=== PATIENT | female | born 1960 | race Caucasian/White ===

== ENCOUNTER 2018-02-13 03:09 | Inpatient (IN) ==
[2018-02-13] MEDS ORDERED: Sod Chloride 0.9% Inj 1,000 ML IV.SIG ONE (03:21)
[2018-02-13] MEDS ORDERED: Famotidine PF Inj 20 MG/2 ML Vial IV.PUSH ONE (03:21)
[2018-02-13] MEDS ORDERED: Ketorolac Inj 30 MG/ML (IVP) Vial IV.PUSH ONE ×2 (03:22→10:00)
--- NOTE | 2018-02-13 03:26 | ED ---
HPI General Chief Complaint: Abdominal Pain Stated Complaint: N/V,rt side abd pain x 12 hrs Time Seen by Provider: 02/13/18 03:20 History of Present Illness HPI narrative: Patient is 58 years old female with history of lymphoma not on chemotherapy since 2013, hysterectomy, partial small bowel obstruction few episodes since [id number], presented for epigastric and lower abdominal pain for 12 hours. Patients feel nauseous, vomited, had small bowel movement. She feels bloated, denies fever denies chest pain and shortness of breath. Related Data Home Medications Medication Instructions Recorded Confirmed No Known Home Medications 02/13/18 02/13/18 Allergies Allergy/AdvReac Type Severity Reaction Status Date / Time Sulfa (Sulfonamide Allergy Severe RASH Verified 02/13/18 03:40 Antibiotics) Review of Systems ROS: all other systems reviewed are negative Gastrointestinal Reports abdominal pain, Reports dyspepsia, Reports nausea and Reports vomiting PMFSH Medical History Medical History History of lymphoma (Acute) Hx of hysterectomy (Acute) Hx of small bowel obstruction (Acute) Social History Social History Substance History: No History of Abuse Second Hand Smoke Exposure: No Smoking Status: Former smoker How Often Do You Have a Drink Containing Alcohol: Monthly or less Recent Travel in [facility] within the Last 8 Weeks: No Recent Out of Country Travel within the Last 8 Weeks: No Exam Narrative Exam Narrative: GENERAL: 58 years old female in mild pain distress SKIN: Focused skin assessment warm/dry. HEAD: Atraumatic. Normocephalic. EYES: Pupils equal and round. No scleral icterus. No injection or drainage. ENT: No nasal bleeding or discharge. Mucous membranes pink and moist. NECK: Trachea midline. No JVD. CARDIOVASCULAR: Regular rate and rhythm. No murmur appreciated. RESPIRATORY: No accessory muscle use. Clear to auscultation. Breath sounds equal bilaterally. GASTROINTESTINAL: Abdomen soft, tender in the epigastric and lower abdominal area, nondistended. Hepatic and splenic margins not palpable. McBurney and Lyn signs are negative. MUSCULOSKELETAL: No obvious deformities. No clubbing. No cyanosis. No edema. NEUROLOGICAL: Awake and alert. No obvious cranial nerve deficits. Motor grossly within normal limits. Normal speech. PSYCHIATRIC: Appropriate mood and affect; insight and judgment normal. Course Initial Documented Vital Signs Temperature 97.6 F 02/13/18 03:14 Pulse Rate 71 02/13/18 03:14 Respiratory Rate 18 02/13/18 03:14 Blood Pressure 134/77 02/13/18 03:14 Pulse Oximetry 99 02/13/18 03:14 Last Documented Vital Signs Temperature 97.6 F 02/13/18 03:14 Pulse Rate 78 02/13/18 05:00 Respiratory Rate 16 02/13/18 05:00 Blood Pressure 138/72 02/13/18 05:00 Pulse Oximetry 99 02/13/18 05:00 Critical Care Time Critical Care Time: Yes Total Critical Care Time: 30 Attestation: Patient was treated for nausea and dehydration. Was diagnosed with small bowel obstruction, is discussed with surgeon and hospitalist. Medical Decision Making MDM Narrative Medical decision making narrative: Patient has abdominal pain, blood work and urine analysis ordered, IV fluids Zofran and Toradol for pain given. CAT scan is pending. 0420: Blood work and urine analysis noticed within normal limits, CAT scan shows small bowel obstruction. Case discussed with Dr. Hua, was asked to admit patient under hospitalist. Dr. Thomas accepted patient for admission. IV fluids continued, NG tube placed. Medical Screen Exam Complete: Yes Emergency Medical Condition: Yes Differential Diagnosis Differential Diagnosis: Small bowel obstruction versus gastroenteritis versus colitis versus diverticulitis. Lab Data Result diagrams: 02/13/18 03:30 02/13/18 03:30 Lab Results 02/13/18 02/13/18 02/13/18 Range/Units 03:30 03:30 03:30 CBC w Diff Auto diff final WBC 7.2 (4.0-11.0) th/mm3 RBC 4.72 (4.00-5.30) mil/mm3 Hgb 13.8 (11.6-15.3) gm/dL Hct 40.4 (35.0-46.0) % MCV 85.6 (80.0-100.0) fL MCH 29.2 (27.0-34.0) pg MCHC 34.0 (32.0-36.0) % RDW 13.3 (11.6-17.2) % Plt Count 179 (150-450) th/mm3 MPV 8.4 (7.0-11.0) fL Neut % (Auto) 84.3 H (16.0-70.0) % Lymph % (Auto) 12.3 (9.0-44.0) % [place] % (Auto) 2.9 (0.0-8.0) % Eos % (Auto) 0.4 (0.0-4.0) % Baso % (Auto) 0.1 (0.0-2.0) % Neut # (Auto) 6.1 (1.8-7.7) th/mm3 Lymph # (Auto) 0.9 L (1.0-4.8) th/mm3 [place] # (Auto) 0.2 (0.0-0.9) th/mm3 Eos # (Auto) 0.0 (0.0-0.4) th/mm3 Baso # (Auto) 0.0 (0.0-0.2) th/mm3 WBC Differential . Differential Comment . Sodium 139 (136-145) meq/L Potassium 3.5 (3.5-5.1) meq/L Chloride 103 (98-107) meq/L Carbon Dioxide 28.8 (21.0-32.0) meq/L Anion Gap 7 (5-15) meq/L BUN 18 (7-18) mg/dL Creatinine 0.85 (0.50-1.00) mg/dL Estimated GFR 68 L (>89) mL/min Random Glucose 167 H (74-106) mg/dL Lactic Acid 1.6 (0.4-2.0) mmol/L Calcium 9.1 (8.5-10.1) mg/dL Total Bilirubin 0.6 (0.2-1.0) mg/dL AST 22 (15-37) U/L ALT 46 (10-53) U/L Alkaline Phosphatase 56 (45-117) U/L Total Protein 8.5 H (6.4-8.2) g/dL Albumin 4.2 (3.4-5.0) g/dL Lipase 109 (73-393) U/L Urine Color (Yellw/Straw) Urine Clarity (Clear) Urine pH (5.0-8.5) Ur Specific [place] (1.002-1.035) Urine Protein (Neg-Trace) mg/dL Urine Glucose (UA) (Negative) mg/dL Urine Ketones (Negative) mg/dL Urine Occult Blood (Negative) Urine Nitrate (Negative) Urine Bilirubin (Negative) Urine Urobilinogen (Less than 2) mg/dL Ur Leukocyte Esterase (Negative) Ur Squamous Epith Cells (0-5) /hpf Amorphous Sediment (None) /hpf Micro UA Comment Ur Microscopic Review Urine Culture Comments 02/13/18 Range/Units 03:30 CBC w Diff WBC (4.0-11.0) th/mm3 RBC (4.00-5.30) mil/mm3 Hgb (11.6-15.3) gm/dL Hct (35.0-46.0) % MCV (80.0-100.0) fL MCH (27.0-34.0) pg MCHC (32.0-36.0) % RDW (11.6-17.2) % Plt Count (150-450) th/mm3 MPV (7.0-11.0) fL Neut % (Auto) (16.0-70.0) % Lymph % (Auto) (9.0-44.0) % [place] % (Auto) (0.0-8.0) % Eos % (Auto) (0.0-4.0) % Baso % (Auto) (0.0-2.0) % Neut # (Auto) (1.8-7.7) th/mm3 Lymph # (Auto) (1.0-4.8) th/mm3 [place] # (Auto) (0.0-0.9) th/mm3 Eos # (Auto) (0.0-0.4) th/mm3 Baso # (Auto) (0.0-0.2) th/mm3 WBC Differential Differential Comment Sodium (136-145) meq/L Potassium (3.5-5.1) meq/L Chloride (98-107) meq/L Carbon Dioxide (21.0-32.0) meq/L Anion Gap (5-15) meq/L BUN (7-18) mg/dL Creatinine (0.50-1.00) mg/dL Estimated GFR (>89) mL/min Random Glucose (74-106) mg/dL Lactic Acid (0.4-2.0) mmol/L Calcium (8.5-10.1) mg/dL Total Bilirubin (0.2-1.0) mg/dL AST (15-37) U/L ALT (10-53) U/L Alkaline Phosphatase (45-117) U/L Total Protein (6.4-8.2) g/dL Albumin (3.4-5.0) g/dL Lipase (73-393) U/L Urine Color Yellow (Yellw/Straw) Urine Clarity Clear (Clear) Urine pH 8.5 (5.0-8.5) Ur Specific [place] 1.010 (1.002-1.035) Urine Protein Trace (Neg-Trace) mg/dL Urine Glucose (UA) Negative (Negative) mg/dL Urine Ketones Negative (Negative) mg/dL Urine Occult Blood Negative (Negative) Urine Nitrate Negative (Negative) Urine Bilirubin Negative (Negative) Urine Urobilinogen 1.0 (Less than 2) mg/dL Ur Leukocyte Esterase Negative (Negative) Ur Squamous Epith Cells 0-5 (0-5) /hpf Amorphous Sediment Many H (None) /hpf Micro UA Comment Culture not ind Ur Microscopic Review Microscopic reviewed Urine Culture Comments Culture not ind Imaging Data Radiologist's impression: Abdomen/Pelvis CT 02/13/18 03:21 CONCLUSION: 1. Dilated proximal small bowel with fecalized loop in the pelvis and decompression of distal small bowel characteristic of a small bowel obstruction. 2. Small hiatal hernia. Small amount of free fluid. No free air. Discharge Plan Discharge Disposition Patient Disposition: 30 Still Patient Discharge Condition Condition: Serious Discharge Details Discharge Comment: Patient has small bowel obstruction, admitted for further evaluation and treatment under hospitalist service. Diagnosis: Small bowel obstruction Physicians Team ED Provider: Monico Haque Primary Care Provider: Bryanna Infante Attending Provider: Valentina Thomas Other Providers: Simon Hua Status ED Status: Admitted Patient
[2018-02-13 03:38] LABS: Bilirubin,Urine Negative (Negative); Clarity,Urine Clear (Clear); Color,Urine Yellow (Yellw/Straw); Glucose,Urine (UA) Negative (Negative); Leukocyte Esterase,Urine Negative (Negative); Nitrite,Urine Negative (Negative); PH,Urine 8.5 (5.0-8.5)
[2018-02-13 04:04] LABS: Squamous Epithelial Cell,Urine 0-5 /hpf (0-5)
[2018-02-13 04:05] LABS: Amorphous Sediment,Urine Many /hpf
[2018-02-13 04:06] LABS: Chloride 103 meq/L (98-107); Potassium 3.5 meq/L (3.5-5.1); Sodium 139 meq/L (136-145)
[2018-02-13 04:08] LABS: Baso % (Auto) 0.1 % (0.0-2.0); Eos % (Auto) 0.4 % (0.0-4.0); Hematocrit 40.4 % (35.0-46.0); Hemoglobin 13.8 gm/dL (11.6-15.3); Lymph # (Auto) 0.9 th/mm3 (1.0-4.8); Lymph % (Auto) 12.3 % (9.0-44.0); Mean Corpuscular Hemoglobin 29.2 pg (27.0-34.0); Mean Corpuscular Volume 85.6 fL (80.0-100.0); Mean Platelet Volume 8.4 fL (7.0-11.0); Mono # (Auto) 0.2 th/mm3 (0.0-0.9); Mono % (Auto) 2.9 % (0.0-8.0); Neut # (Auto) 6.1 th/mm3 (1.8-7.7); Neut % (Auto) 84.3 % (16.0-70.0); Platelet Count 179 th/mm3 (150-450); Red Blood Count 4.72 mil/mm3 (4.00-5.30); Red Cell Distribution Width 13.3 % (11.6-17.2); White Blood Count 7.2 th/mm3 (4.0-11.0)
[2018-02-13 04:09] LABS: Calcium 9.1 mg/dL (8.5-10.1)
[2018-02-13 04:10] LABS: Albumin 4.2 g/dL (3.4-5.0); Anion Gap 7 meq/L (5-15); Blood Urea Nitrogen 18 mg/dL (7-18); Carbon Dioxide 28.8 meq/L (21.0-32.0); Glucose,Random 167 mg/dL (74-106); Lipase 109 U/L (73-393)
[2018-02-13 04:12] LABS: Alanine Aminotransferase 46 U/L (10-53); Aspartate Aminotransferase 22 U/L (15-37)
[2018-02-13 04:13] LABS: Glomerular Filtration Rate 68 mL/min (>89)
[2018-02-13 04:14] LABS: Total Protein 8.5 g/dL (6.4-8.2)
[2018-02-13 04:15] LABS: Alkaline Phosphatase 56 U/L (45-117)
--- NOTE | 2018-02-13 04:15 | CT ---
EXAM DATE: 02/13/2018 3:24 AM EDT AGE/SEX: 58 years / Female INDICATIONS: Right sided abdominal pain radiating to middle abdomen, with nausea and vomiting. CLINICAL DATA: This is the patient's initial encounter. Patient reports that signs and symptoms have been present for 1 day and indicates a pain score of 6/10. MEDICAL/SURGICAL HISTORY: . Lymphoma. Hysterectomy. RADIATION DOSE: 10.45 CTDI (mGy) COMPARISON: . TECHNIQUE: Multiple contiguous axial images were obtained through the abdomen. Images were obtained using multiple row detector helical technique. Using automated exposure control and adjustment of the mA and/or kV according to patient size, radiation dose was kept as low as reasonably achievable to o btain optimal diagnostic quality images. DICOM format image data is available electronically for rev iew and comparison. FINDINGS: Lung bases demonstrate minimal scarring or atelectasis. Small hiatal hernia. Mild fatty liver. Spleen, adrenals, kidneys and pancreas unremarkable. No calcified gallstones or roma iary ductal dilatation. There are dilated proximal and mid small bowel loops with some decompression distally. Fecalized smal l bowel loop present within the pelvis. Postoperative hysterectomy. There is some gas and feces in th e colon. Appendix is normal. Small amount of free fluid in the pelvis. No free air. CONCLUSION: 1. Dilated proximal small bowel with fecalized loop in the pelvis and decompression of distal small bowel characteristic of a small bowel obstruction. 2. Small hiatal hernia. Small amount of free fluid. No free air. Electronically signed by: Jose Jones MD 02/13/2018 4:14 AM EDT
[2018-02-13] MEDS ORDERED: Bisacodyl 10 MG Supp RECTAL PRN (04:25)
[2018-02-13] MEDS ORDERED: Morphine Sulfate Inj 2 MG/ML Vial IV.PUSH PRN (04:26)
[2018-02-13] MEDS: Sod Chloride 0.9% Inj 1,000 ML IV.CONT SCH ×2 (04:36→17:52)
[2018-02-13] MEDS ORDERED: HYDROmorphone PF Inj 1 MG/ML Ampul IV.PUSH PRN (05:24)
[2018-02-13] MEDS ORDERED: HYDROmorphone PF Inj 2 MG/ML Vial IV.PUSH PRN (05:45)
[2018-02-13] MEDS: Senna/Docusate Sodium 8.6/50 MG Tablet PO SCH ×2 (08:19→20:22)
--- NOTE | 2018-02-13 10:38 | P.HP ---
History of Present Illness Primary Care Physician: Bryanna Infante Chief Complaint: Abdominal pain History of Present Illness: 58-year-old female with known history of non-Hodgkin lymphoma, history of small bowel obstructions who presented to the hospital for evaluation of abdominal pain. Patient states that she is in normal state of health until yesterday afternoon when she started developing some abdominal discomfort, abdominal distention and then subsequently started having nausea and vomiting. Patient has had previous bowel obstruction in the past and she was fearing that she had another bowel obstruction. Patient came to emergency department for evaluation and workup did indicate that she does have a bowel obstruction and it was recommended by the ER physician that the patient will be admitted for further evaluation and management. Patient's last bowel obstruction was 4 years ago which resolved on its own. Patient has been told that she does have adhesions and scar tissue in her abdomen. Only abdominal surgery in the past had been hysterectomy. Patient is also been told in the past that it may be related to her non-Hodgkin lymphoma. At time evaluating the patient she is no longer have any abdominal pain. She had a bowel movement approximate 1 AM this morning. She indicates that the NG tube is irritating her nose and throat. - Diagnosis (1) Small bowel obstruction Inpatient Certification: I certify that the inpatient services were ordered in accordance with Medicare regulations governing the order. This includes certification that hospital inpatient services are reasonable and necessary and in the case of services not specified as inpatient-only under 42 CFR 419.22(n), that they are appropriately provided as inpatient services in accordance to with the 2-midnight benchmark under 43 CFR 412.3(e) Estimated Total Length of Stay (Days): 2 Plans for Post Hospital Care: Not yet determined Review of Systems All other systems reviewed negative except as stated in HPI Gastrointestinal: Reports abdominal pain, Reports nausea, Reports vomiting PMFSH - History History Provided By: Patient - Medical History Medical History: Medical History (Last Updated 02/13/18 @ 10:31 by KIMANI Spicer) History of non-Hodgkin's lymphoma Hx of small bowel obstruction - Surgical History Surgical History: Surgical History (Last Updated 02/13/18 @ 10:30 by KIMANI Spicer) Hx of hysterectomy - Family History Family History: Family History (Last Updated 02/13/18 @ 10:30 by KIMANI Spicer) Mother History of diabetes mellitus Father History of heart disease - Tobacco History Second Hand Smoke Exposure: Yes Tobacco Use In Past 30 Days: No Smoking Status: Never smoker - Alcohol History How Often Do You Have a Drink Containing Alcohol: 2 to 4 times a month - Substance Use History Substance History: No History of Abuse - Travel History Recent Travel in the [place] Within the Last 8 Weeks: No Recent Travel Out of the Country Within the Last 8 Weeks: No - Immunization History Tetanus Immunization: <5 Years Hx Influenza Vaccine This Season: No Medications and Allergies Active Medications: Active Medications Al Hydroxide/Mg Hydroxide (Milk Of Magnesia Liq) 30 ml PO Q12H PRN PRN Reason: Mild Constipation Bisacodyl (Dulcolax Supp) 10 mg RECTAL DAILY PRN PRN Reason: SEVERE CONSITIPATION Sodium Chloride (Ns Inj) 1,000 mls @ 100 mls/hr IV.CONT .Q10H [facility] Last Infusion: 02/13/18 05:02 Dose: 100 mls/hr Lactulose (Lactulose Liq) 30 ml PO DAILY PRN PRN Reason: SEVERE CONSITIPATION Metoclopramide HCl (Reglan Inj) 10 mg IV.PUSH Q8HR [facility]; Protocol Last Admin: 02/13/18 05:37 Dose: 10 mg Ondansetron HCl (Zofran Inj) 4 mg IV.PUSH Q6H PRN PRN Reason: NAUSEA OR VOMITING Senna/Docusate Sodium (Berenice-Colace) 1 tab PO BID [facility] Last Admin: 02/13/18 08:19 Dose: Not Given Sennosides (Senokot) 17.2 mg PO Q12H PRN PRN Reason: Moderate Constipation Sodium Chloride (Ns Flush) 2 ml IV.FLUSH PRN PRN PRN Reason: FLUSH AFTER USING IV ACCESS Allergies Allergy/AdvReac Type Severity Reaction Status Date / Time Sulfa (Sulfonamide Allergy Severe RASH Verified 02/13/18 03:40 Antibiotics) Home Medications Medication Instructions Recorded Confirmed Type No Known Home Medications 02/13/18 02/13/18 History Exam Vital signs: Vital Signs 02/13/18 03:14 02/13/18 05:00 02/13/18 06:11 Temperature 97.6 F 96.9 F L Pulse Rate 71 78 74 Respiratory Rate 18 16 20 Blood Pressure 134/77 138/72 126/71 Pulse Oximetry 99 99 97 02/13/18 08:00 Temperature 97.7 F Pulse Rate 86 Respiratory Rate 20 Blood Pressure 133/71 Pulse Oximetry 96 Intake & Output 02/12/18 02/13/18 02/13/18 18:59 06:59 18:59 Intake Total 600 / 600 0 / 0 Output Total 200 / 200 200 / 200 Balance 400 / 400 -200 / -200 Weight 79.1 kg Intake: IV 600 / 600 NS Inj 1,000 ML @ 100 mls/hr IV 100 / 100 .CONT .Q10H JEIMY Rx#:[id number] NS Inj 1,000 ML @ Wide Open IV. 500 / 500 SIG BOLUS ONE Rx#:[id number] Oral 0 / 0 Output: Urine 200 / 200 Gastric Drainage 200 / 200 Right Nare Nasogastric Tube 200 / 200 Other: Weight On Admission 79.1 kg Narrative: GENERAL: Well-developed, well-nourished, in no acute distress. alert and orientated HEENT: Head is normocephalic without any lesions or masses noted. Facial features are symmetric. Eyes: Pupils equal round reactive to light. Extraocular muscles are intact. Conjunctivae were clear. Oropharyngeal: Pharynx without any erythema edema. Tongue is midline without deviation. Buccal mucosa is moist without any masses or lesions. NG tube in place NECK: Supple without any masses. Trachea midline no deviation. No JVD, no bruits are appreciated CARDIAC: Regular rhythm, regular rate. S1/S2 are heard. No murmurs gallops or rubs. LUNGS: Clear to auscultation bilaterally. No wheeze, rhonchi or rales. No use of accessory muscles on inspiration or expiration. ABDOMEN: Soft, nontender. Nondistended. Bowel sounds heard in all 4 quadrants. No organomegaly or masses. Negative rebound, negative guarding EXTREMITIES: No edema, pulses are equal bilaterally. No cyanosis or clubbing NEUROLOGY: Mood and affect appear appropriate. Cranial nerves II through XII grossly intact. Muscle strength 5/5 in upper and lower extremities bilaterally. Deep tendon reflexes are 2+ in upper and lower extremities bilaterally. Results - Labs CBC & Chem 7: 02/13/18 03:30 02/13/18 03:30 Labs: Laboratory Results - last 24 hr 02/13/18 02/13/18 02/13/18 03:30 03:30 03:30 CBC w Diff Auto diff final WBC 7.2 RBC 4.72 Hgb 13.8 Hct 40.4 MCV 85.6 MCH 29.2 MCHC 34.0 RDW 13.3 Plt Count 179 MPV 8.4 Neut % (Auto) 84.3 H Lymph % (Auto) 12.3 [place] % (Auto) 2.9 Eos % (Auto) 0.4 Baso % (Auto) 0.1 Neut # (Auto) 6.1 Lymph # (Auto) 0.9 L [place] # (Auto) 0.2 Eos # (Auto) 0.0 Baso # (Auto) 0.0 WBC Differential . Differential Comment . Sodium 139 Potassium 3.5 Chloride 103 Carbon Dioxide 28.8 Anion Gap 7 BUN 18 Creatinine 0.85 Estimated GFR 68 L Random Glucose 167 H Lactic Acid 1.6 Calcium 9.1 Total Bilirubin 0.6 AST 22 ALT 46 Alkaline Phosphatase 56 Total Protein 8.5 H Albumin 4.2 Lipase 109 Urine Color Urine Clarity Urine pH Ur Specific [place] Urine Protein Urine Glucose (UA) Urine Ketones Urine Occult Blood Urine Nitrate Urine Bilirubin Urine Urobilinogen Ur Leukocyte Esterase Ur Squamous Epith Cells Amorphous Sediment Micro UA Comment Ur Microscopic Review Urine Culture Comments 02/13/18 03:30 CBC w Diff WBC RBC Hgb Hct MCV MCH MCHC RDW Plt Count MPV Neut % (Auto) Lymph % (Auto) [place] % (Auto) Eos % (Auto) Baso % (Auto) Neut # (Auto) Lymph # (Auto) [place] # (Auto) Eos # (Auto) Baso # (Auto) WBC Differential Differential Comment Sodium Potassium Chloride Carbon Dioxide Anion Gap BUN Creatinine Estimated GFR Random Glucose Lactic Acid Calcium Total Bilirubin AST ALT Alkaline Phosphatase Total Protein Albumin Lipase Urine Color Yellow Urine Clarity Clear Urine pH 8.5 Ur Specific [place] 1.010 Urine Protein Trace Urine Glucose (UA) Negative Urine Ketones Negative Urine Occult Blood Negative Urine Nitrate Negative Urine Bilirubin Negative Urine Urobilinogen 1.0 Ur Leukocyte Esterase Negative Ur Squamous Epith Cells 0-5 Amorphous Sediment Many H Micro UA Comment Culture not ind Ur Microscopic Review Microscopic reviewed Urine Culture Comments Culture not ind - Imaging Impressions Abdomen/Pelvis CT 02/13/18 03:21 CONCLUSION: 1. Dilated proximal small bowel with fecalized loop in the pelvis and decompression of distal small bowel characteristic of a small bowel obstruction. 2. Small hiatal hernia. Small amount of free fluid. No free air. Caprini VTE Risk Assessment Caprini VTE Risk Assessment: No/Low Risk (score <= 1) Caprini Risk Assessment Model: Point Value = 1 Point Value = 2 Point Value = 3 Point Value = 5 Age 41-60 Minor surgery BMI > 25 kg/m2 Swollen legs Varicose veins or History of unexplained or recurrent spontaneous Oral contraceptives or hormone replacement Sepsis (< 1 month) Serious lung disease, including pneumonia (< 1 month) Abnormal pulmonary function Acute myocardial infarction Congestive heart failure (< 1 month) History of inflammatory bowel disease Medical patient at bed rest Age 61-74 Arthroscopic surgery Major open surgery (> 45 min) Laparoscopic surgery (> 45 min) Malignancy Confined to bed (> 72 hours) Immobilizing plaster cast Central venous access Age >= 75 History of VTE Family history of VTE Factor V Leiden Prothrombin [id number] Lupus anticoagulant Anticardiolipin antibodies Elevated serum homocysteine Heparin-induced thrombocytopenia Other congenital or acquired thrombophilia Stroke (< 1 month) Elective arthroplasty Hip, pelvis, or leg fracture Acute spinal cord injury (< 1 month) Prophylaxis Regimen: Total Risk Factor Score Risk Level Prophylaxis Regimen 0-1 Low Early ambulation 2 Moderate Order ONE of the following: *Sequential Compression Device (SCD) *Heparin 5000 units SQ BID 3-4 Higher Order ONE of the following medications: *Heparin 5000 units SQ TID *Enoxaparin/Lovenox 40 mg SQ daily (WT < 150 kg, CrCl > 30 mL/min) *Enoxaparin/Lovenox 30 mg SQ daily (WT < 150 kg, CrCl > 10-29 mL/min) *Enoxaparin/Lovenox 30 mg SQ BID (WT < 150 kg, CrCl > 30 mL/min) AND/OR *Sequential Compression Device (SCD) 5 or more Highest Order ONE of the following medications: *Heparin 5000 units SQ TID (Preferred with Epidurals) *Enoxaparin/Lovenox 40 mg SQ daily (WT < 150 kg, CrCl > 30 mL/min) *Enoxaparin/Lovenox 30 mg SQ daily (WT < 150 kg, CrCl > 10-29 mL/min) *Enoxaparin/Lovenox 30 mg SQ BID (WT < 150 kg, CrCl > 30 mL/min) AND *Sequential Compression Device (SCD) Assessment and Plan - Assessment (1) Small bowel obstruction Code(s): K56.609 - Unspecified intestinal obstruction, unspecified as to partial versus complete obstruction Status: Acute - Plan Small bowel obstruction, recurrent -Continue supportive care at this time with n.p.o., IV fluids, NG tube to low intermittent wall suction, pain control -Obtain abdominal x-ray flat/upright to monitor for obstructive process. Patient did have a bowel movement last evening -General surgery consulted for further recommendations -Discussed with general surgery who indicated that since patient has decreased amount of NG tube output, we can remove the NG tube, start patient on clear liquid diet. If patient tolerates diet and signs of resolution of bowel obstruction patient may be discharged home tomorrow. DVT prevention -Sequential compression devices
--- NOTE | 2018-02-13 11:00 | XR ---
EXAM DATE: 02/13/2018 9:52 AM EDT AGE/SEX: 58 years / Female INDICATIONS: Obstruction, abdomen pain, nausea and vomiting CLINICAL DATA: This is the patient's subsequent encounter. Patient reports that signs and symptoms h ave been present for 2 days and indicates a pain score of 0/10. MEDICAL/SURGICAL HISTORY: . Lymphoma. . Hysterectomy COMPARISON: [facility], CT ABDOMEN & PELVIS W/O CONTRAST, 02/13/2018. . FINDINGS: 2 views of the abdomen demonstrates a nasogastric tube overlying the expected region of the stomach w ith the proximal port below the level of the diaphragm. Air-fluid levels are identified within mildly dilated small bowel loops with small bowel feces identified within mildly dilated loops of small bow el within the pelvis. Air and stool identified within nondilated large bowel. CONCLUSION: The patient is status post placement of a nasogastric tube with the proximal port below the level of the diaphragm and positioned overlying the stomach. Air fluid levels identified within the small yasmani l consistent with small bowel obstruction. Small bowel stool is identified within the pelvis. No evid ence of free air. Electronically signed by: Lu Wood MD 02/13/2018 10:58 AM EDT
[2018-02-13] MEDS ORDERED: Acetaminophen Inj 650 MG/65 ML VIAL IV.SIG PRN (14:01)
--- NOTE | 2018-02-13 19:52 | MB ---
cc: Simon Hua MD, Eric MD DATE: 02/13/2018 PHYSICIAN REQUESTING CONSULTATION: John Osborne MD REASON FOR CONSULTATION: Small-bowel obstruction. HISTORY OF PRESENT ILLNESS: The patient is a 58-year-old female with a history of non-Hodgkin lymphoma who presented to [facility] with nausea and vomiting. The patient underwent an evaluation and was diagnosed with a small-bowel obstruction based on a CT scan with a transition point in the pelvis. The patient has a previous history of a hysterectomy as well as a previous history of non-Hodgkin lymphoma treated in 2011. The patient also has a history of multiple adhesive bowel obstructions that were all treated nonoperatively, last in 2013. The patient states that this pain started after she ate a bunch of raw vegetables and developed increasing abdominal pain and bloating. She currently states her pain has significantly decreased and is almost gone and she has been passing some flatus. She says her last bowel movement was last night after admission. She has had minimal NG tube output today. The patient denies any fever, chills, night sweats, shortness of breath, chest pain or any other complaints. REVIEW OF SYSTEMS: A 12-point review of systems conducted with the patient is negative except for the pertinent positives mentioned above in the history of present illness. PAST MEDICAL HISTORY: Non-Hodgkin lymphoma. PAST SURGICAL HISTORY: Hysterectomy. ALLERGIES: SULFA. HOME MEDICATIONS: No home medications. SOCIAL HISTORY: The patient rarely uses alcohol. She does not use illicit drugs or tobacco products. There is no history of abuse. FAMILY HISTORY: Reviewed and noncontributory. PHYSICAL EXAMINATION: VITAL SIGNS: Temperature 98.9 degrees, heart rate 79, respiratory rate 20, blood pressure 133/73, O2 saturation 98% on room air. GENERAL: The patient is a thin female in no acute distress. HEENT: Head is normocephalic, atraumatic. Pupils are round, reactive and accommodating to light. Sclerae are anicteric. Oral cavity is clear. A nasogastric tube is in place. Airway is patent. NECK: Supple. No JVD. No lymphadenopathy. LUNGS: Breath sounds present bilaterally. Nonlabored breathing pattern. HEART: Regular rate and rhythm. PMI is nondisplaced. ABDOMEN: Normal bowel sounds. Soft and nontender to palpation. No organomegaly, no ascites, no distention. Surgical scar visible from hysterectomy Pfannenstiel incision. BACK: No CVA tenderness. RECTAL: Deferred. EXTREMITIES: No clubbing, cyanosis or edema. NEUROLOGIC: Awake, alert and oriented x 3. Mood, judgment and insight are intact. Cranial nerves 2-12 are grossly intact. Nonfocal peripheral exam. LABORATORY VALUES: CBC and chemistry panel are unremarkable except for a mildly elevated glucose of 167. IMAGING: A CT scan does show small-bowel obstruction with transition in the pelvis. ASSESSMENT AND PLAN: The patient is a 58-year-old female with a history of hysterectomy as well as non-Hodgkin lymphoma with a recurrent small-bowel obstruction. The patient seems to be resolving with nonoperative management that has been started by the emergency department and medical team at this point in time. I do feel we could remove the NG tube and do a trial of a clear liquid diet at this time. I would do clear liquids for 24 hours and if the patient continues to progress and can tolerate a regular diet in the next 24-48 hours, she could potentially be discharged. I did have a long discussion with the patient about the cause of the bowel obstruction, which is likely adhesions from her hysterectomy based on the CT scan and her clinical history. I discussed acute and chronic intervention on small-bowel obstructions including elective surgery for adhesiolysis. I do not recommend any acute surgical intervention at this time. The patient is in agreement with the plan. My contact information was provided to the patient. She will follow up with me in 2 weeks when she is discharged. Thank you very much for this consultation. We will follow along with the patient to ensure resolution of her bowel obstruction. I also discussed the case with Mr. Salinas, the PA with the hospitalist team. MD MILAGROS Kendrick/jony , 04:58 PM , 05:09 PM
[2018-02-14] MEDS: Sod Chloride 0.9% Inj 1,000 ML IV.CONT SCH ×4 (00:34→20:56)
[2018-02-14 05:34] LABS: Baso % (Auto) 0.1 % (0.0-2.0); Eos # (Auto) 0.1 th/mm3 (0.0-0.4); Eos % (Auto) 1.5 % (0.0-4.0); Hematocrit 34.4 % (35.0-46.0); Hemoglobin 11.4 gm/dL (11.6-15.3); Lymph # (Auto) 1.3 th/mm3 (1.0-4.8); Lymph % (Auto) 29.7 % (9.0-44.0); Mean Corpuscular HGB Conc 33.1 % (32.0-36.0); Mean Corpuscular Hemoglobin 29.2 pg (27.0-34.0); Mean Corpuscular Volume 88.3 fL (80.0-100.0); Mean Platelet Volume 7.7 fL (7.0-11.0); Mono # (Auto) 0.2 th/mm3 (0.0-0.9); Mono % (Auto) 5.4 % (0.0-8.0); Neut # (Auto) 2.8 th/mm3 (1.8-7.7); Neut % (Auto) 63.3 % (16.0-70.0); Platelet Count 134 th/mm3 (150-450); Red Cell Distribution Width 12.8 % (11.6-17.2); White Blood Count 4.4 th/mm3 (4.0-11.0)
[2018-02-14 05:52] LABS: Chloride 110 meq/L (98-107); Potassium 3.1 meq/L (3.5-5.1); Sodium 143 meq/L (136-145)
[2018-02-14 06:20] LABS: Alanine Aminotransferase 32 U/L (10-53); Albumin 3.2 g/dL (3.4-5.0); Alkaline Phosphatase 42 U/L (45-117); Anion Gap 6 meq/L (5-15); Aspartate Aminotransferase 14 U/L (15-37); Blood Urea Nitrogen 10 mg/dL (7-18); Calcium 7.9 mg/dL (8.5-10.1); Carbon Dioxide 27.4 meq/L (21.0-32.0); Glomerular Filtration Rate Greater Than 89 mL/min (>89); Glucose,Random 91 mg/dL (74-106); Total Protein 6.5 g/dL (6.4-8.2)
--- NOTE | 2018-02-14 06:46 | XR ---
EXAM DATE: 02/14/2018 6:00 AM EDT AGE/SEX: 58 years / Female INDICATIONS: Obstruction, abdomen pain, nausea and vomiting CLINICAL DATA: This is the patient's subsequent encounter. Patient reports that signs and symptoms h ave been present for 3 days and indicates a pain score of 4/10. MEDICAL/SURGICAL HISTORY: Lymphoma. Hysterectomy. COMPARISON: [facility], ABDOMEN 2V FLAT & UPRIGHT, 02/13/2018. . FINDINGS: Examination of the abdomen demonstrates gaseous distention of the small bowel with air fluid levels m ost consistent with ileus .There are no findings of small bowel obstruction. No free air is identifie d. No organomegaly is evident. Nasogastric tube has been removed. CONCLUSION: Findings of mild small bowel ileus. Electronically signed by: Giorgi Richards MD 02/14/2018 6:45 AM EDT
--- NOTE | 2018-02-14 08:13 | P.PNGS ---
Subjective Interval history: Resting in bed Feeling better Passing flatus; No BM yet Feels hungry Physical Exam Vital signs: Vital Signs 02/13/18 12:00 02/13/18 16:00 02/13/18 20:00 Temperature 98.9 F 99.4 F 96.8 F L Pulse Rate 79 89 87 Respiratory Rate 20 20 16 Blood Pressure 133/73 146/82 H 133/74 Pulse Oximetry 98 96 98 02/14/18 00:00 Temperature 97.4 F L Pulse Rate 82 Respiratory Rate 16 Blood Pressure 121/72 Pulse Oximetry 96 Intake & Output 02/13/18 02/14/18 02/14/18 18:59 06:59 18:59 Intake Total 1720 / 1720 1720 / 1720 Output Total 600 / 600 Balance 1120 / 1120 1720 / 1720 Weight 79.1 kg Intake: IV 1000 / 1000 1000 / 1000 NS Inj 1,000 ML @ 100 mls/hr IV 1000 / 1000 1000 / 1000 .CONT .Q10H JEIMY Rx#:[id number] Oral 720 / 720 720 / 720 Output: Urine 400 / 400 Stool 0 / 0 Gastric Drainage 200 / 200 Right Nare Nasogastric Tube 200 / 200 Other: # Voids 2 Date of Last Bowel Movement 02/13/18 02/13/18 Narrative: Alert and awake sitting up in bed Abd: soft; mildly tender in mid lower pelvis; nondistended Results - Labs 02/14/18 04:30 02/14/18 04:30 Laboratory Results - last 24 hr 02/14/18 02/14/18 04:30 04:30 CBC w Diff Auto diff final WBC 4.4 RBC 3.90 L Hgb 11.4 L D Hct 34.4 L MCV 88.3 MCH 29.2 MCHC 33.1 RDW 12.8 Plt Count 134 L MPV 7.7 Neut % (Auto) 63.3 Lymph % (Auto) 29.7 Whiteside % (Auto) 5.4 Eos % (Auto) 1.5 Baso % (Auto) 0.1 Neut # (Auto) 2.8 Lymph # (Auto) 1.3 Whiteside # (Auto) 0.2 Eos # (Auto) 0.1 Baso # (Auto) 0.0 WBC Differential . Differential Comment . Sodium 143 Potassium 3.1 L Chloride 110 H Carbon Dioxide 27.4 Anion Gap 6 BUN 10 Creatinine 0.67 Estimated GFR Greater than 89 Random Glucose 91 Calcium 7.9 L D Total Bilirubin 0.6 AST 14 L ALT 32 Alkaline Phosphatase 42 L Total Protein 6.5 D Albumin 3.2 L D - Imaging Imaging: ITS Impressions Abdomen/Pelvis CT 02/13/18 03:21 CONCLUSION: 1. Dilated proximal small bowel with fecalized loop in the pelvis and decompression of distal small bowel characteristic of a small bowel obstruction. 2. Small hiatal hernia. Small amount of free fluid. No free air. Abdomen X-Ray 02/14/18 06:00 CONCLUSION: Findings of mild small bowel ileus. Assessment and Plan - Assessment (1) Small bowel obstruction Code(s): K56.609 - Unspecified intestinal obstruction, unspecified as to partial versus complete obstruction Status: Acute Plan: 58 year old female with abdominal pain; SBO -Resolving -Advance to full liquids -MOM -Advance diet as bowel function returns -Continue non operative treatment - Attending Attestation The exam, history, and the medical decision-making described in the above note were completed with the assistance of the mid-level provider. I reviewed and agree with the findings presented. I attest that I had a [id number] encounter with the patient on the same day, and personally performed and documented my assessment and findings in the medical record. patient with resolving SBO, +bm, tolerating PO abdominal exam stable, non-tender, non-distended ok to DC from surgery standpoint, FU with me 1-2 weeks DC on soft diet d/w patient and family
[2018-02-14] MEDS: Senna/Docusate Sodium 8.6/50 MG Tablet PO SCH ×2 (08:31→20:53)
--- NOTE | 2018-02-14 08:56 | P.PN ---
Subjective Interval history: 58-year-old female who is seen and examined today for follow-up on small bowel obstruction. Patient is doing much better. She is tolerating liquid diet without any complications. Patient did have a bowel movement this morning. Patient did have some mild distention. Surgery has advance her diet. Vital signs remained stable. Patient remains afebrile. Physical Exam Vital signs: Vital Signs 02/13/18 12:00 02/13/18 16:00 02/13/18 20:00 Temperature 98.9 F 99.4 F 96.8 F L Pulse Rate 79 89 87 Respiratory Rate 20 20 16 Blood Pressure 133/73 146/82 H 133/74 Pulse Oximetry 98 96 98 02/14/18 00:00 02/14/18 08:00 Temperature 97.4 F L 96.4 F L Pulse Rate 82 75 Respiratory Rate 16 16 Blood Pressure 121/72 137/73 Pulse Oximetry 96 97 Intake & Output 02/13/18 02/14/18 02/14/18 18:59 06:59 18:59 Intake Total 1720 / 1720 1720 / 1720 Output Total 600 / 600 Balance 1120 / 1120 1720 / 1720 Weight 79.1 kg Intake: IV 1000 / 1000 1000 / 1000 NS Inj 1,000 ML @ 100 mls/hr IV 1000 / 1000 1000 / 1000 .CONT .Q10H JEIMY Rx#:[id number] Oral 720 / 720 720 / 720 Output: Urine 400 / 400 Stool 0 / 0 Gastric Drainage 200 / 200 Right Nare Nasogastric Tube 200 / 200 Other: # Voids 2 Date of Last Bowel Movement 02/13/18 02/13/18 02/14/18 # Bowel Movements 1 Narrative: GENERAL: Well-developed, well-nourished, in no acute distress. alert and orientated HEENT: Head is normocephalic without any lesions or masses noted. Facial features are symmetric. Eyes: Extraocular muscles are intact. Conjunctivae were clear. NECK: Supple without any masses. Trachea midline no deviation. No JVD, CARDIAC: Regular rhythm, regular rate. S1/S2 are heard. No murmurs gallops or rubs. LUNGS: Clear to auscultation bilaterally. No wheeze, rhonchi or rales. No use of accessory muscles on inspiration or expiration. ABDOMEN: Soft, nontender. Nondistended. Bowel sounds heard in all 4 quadrants. No organomegaly or masses. Negative rebound, negative guarding EXTREMITIES: No edema, pulses are equal bilaterally. No cyanosis or clubbing NEUROLOGY: Mood and affect appear appropriate. Cranial nerves II through XII grossly intact. Moving all extremities, speech is clear Results - Labs CBC & Chem 7: 02/14/18 04:30 02/14/18 04:30 Laboratory Results - last 24 hr 02/14/18 02/14/18 04:30 04:30 CBC w Diff Auto diff final WBC 4.4 RBC 3.90 L Hgb 11.4 L D Hct 34.4 L MCV 88.3 MCH 29.2 MCHC 33.1 RDW 12.8 Plt Count 134 L MPV 7.7 Neut % (Auto) 63.3 Lymph % (Auto) 29.7 Beadle % (Auto) 5.4 Eos % (Auto) 1.5 Baso % (Auto) 0.1 Neut # (Auto) 2.8 Lymph # (Auto) 1.3 Beadle # (Auto) 0.2 Eos # (Auto) 0.1 Baso # (Auto) 0.0 WBC Differential . Differential Comment . Sodium 143 Potassium 3.1 L Chloride 110 H Carbon Dioxide 27.4 Anion Gap 6 BUN 10 Creatinine 0.67 Estimated GFR Greater than 89 Random Glucose 91 Calcium 7.9 L D Total Bilirubin 0.6 AST 14 L ALT 32 Alkaline Phosphatase 42 L Total Protein 6.5 D Albumin 3.2 L D - Imaging Impressions Abdomen X-Ray 02/13/18 09:52 CONCLUSION: The patient is status post placement of a nasogastric tube with the proximal port below the level of the diaphragm and positioned overlying the stomach. Air fluid levels identified within the small bowel consistent with small bowel obstruction. Small bowel stool is identified within the pelvis. No evidence of free air. Abdomen X-Ray 02/14/18 06:00 CONCLUSION: Findings of mild small bowel ileus. Assessment and Plan - Assessment (1) Small bowel obstruction Code(s): K56.609 - Unspecified intestinal obstruction, unspecified as to partial versus complete obstruction Status: Acute - Plan Small bowel obstruction, recurrent -Continue supportive care at this time with n.p.o., IV fluids, pain control -Abdominal x-ray flat/upright did not indicate any obstruction today. Does show possible small bowel ileus -General surgery consulted for further recommendations, they are recommending advancing diet and continuing supportive measures -Discussed with general surgery who indicated that patient is improving. Will advance diet and monitor overnight -Discussed with patient performing small bowel follow-through to evaluate for any continued obstruction and/or ileus. Patient decided that she would want to have the small bowel follow-through performed. -General surgery indicating that they did not want to have the small bowel follow-through performed that they just want to advance her diet and possibly discharge tomorrow if patient remains stable. DVT prevention -Sequential compression devices
--- NOTE | 2018-02-15 07:54 | P.PNGS ---
Subjective Interval history: Resting in bed Ate dinner last night and breakfast this morning +BM Physical Exam Vital signs: Vital Signs 02/14/18 08:00 02/14/18 11:39 02/14/18 15:41 Temperature 96.4 F L 96.8 F L 97.2 F L Pulse Rate 75 72 75 Respiratory Rate 16 16 16 Blood Pressure 137/73 136/70 150/85 H Pulse Oximetry 97 98 97 02/14/18 20:00 02/15/18 00:00 Temperature 98.0 F 96.4 F L Pulse Rate 80 73 Respiratory Rate 16 16 Blood Pressure 135/94 H 135/84 Pulse Oximetry 97 98 Intake & Output 02/14/18 02/15/18 02/15/18 18:59 06:59 18:59 Intake Total 1000 / 1000 480 / 480 Balance 1000 / 1000 480 / 480 Weight 79.1 kg Intake: IV 1000 / 1000 NS Inj 1,000 ML @ 100 mls/hr IV 1000 / 1000 .CONT .Q10H JEIMY Rx#:[id number] Oral 480 / 480 Other: # Voids 4 2 Date of Last Bowel Movement 02/14/18 # Bowel Movements 1 Narrative: Alert and awake Abd: soft;non tender non distended Results - Labs 02/14/18 04:30 02/14/18 04:30 - Imaging Imaging: ITS Impressions Abdomen/Pelvis CT 02/13/18 03:21 CONCLUSION: 1. Dilated proximal small bowel with fecalized loop in the pelvis and decompression of distal small bowel characteristic of a small bowel obstruction. 2. Small hiatal hernia. Small amount of free fluid. No free air. Abdomen X-Ray 02/14/18 06:00 CONCLUSION: Findings of mild small bowel ileus. Assessment and Plan - Assessment (1) Small bowel obstruction Code(s): K56.609 - Unspecified intestinal obstruction, unspecified as to partial versus complete obstruction Status: Acute Plan: 58 year old female with abdominal pain; SBO -Resolved SBO -Tolerating regular diet -Counseling on foods to avoid (crunchy raw vegetables, skins of fruit, nuts) -GS clear for DC
--- NOTE | 2018-02-15 08:15 | P.DS ---
Date of admission: 02/13/18 04:32 Primary care physician: Bryanna Infante Anticipated date of discharge: 02/15/18 Brief History from admission: 58-year-old female with known history of non-Hodgkin lymphoma, history of small bowel obstructions who presented to the hospital for evaluation of abdominal pain. Patient states that she is in normal state of health until yesterday afternoon when she started developing some abdominal discomfort, abdominal distention and then subsequently started having nausea and vomiting. Patient has had previous bowel obstruction in the past and she was fearing that she had another bowel obstruction. Patient came to emergency department for evaluation and workup did indicate that she does have a bowel obstruction and it was recommended by the ER physician that the patient will be admitted for further evaluation and management. Patient's last bowel obstruction was 4 years ago which resolved on its own. Patient has been told that she does have adhesions and scar tissue in her abdomen. Only abdominal surgery in the past had been hysterectomy. Patient is also been told in the past that it may be related to her non-Hodgkin lymphoma. At time evaluating the patient she is no longer have any abdominal pain. She had a bowel movement approximate 1 AM this morning. She indicates that the NG tube is irritating her nose and throat. Patient update on day of discharge: Patient follow-up for small bowel obstruction. Patient seen and examined, lying in bed comfortably no apparent distress. Tolerated breakfast this morning. No nausea or vomiting noted. Doing well overnight. Has improved. General surgery cleared patient for discharge. DS: Diagnosis - Discharge Diagnosis (1) Small bowel obstruction Status: Acute DS: Summary Hospital Course: This is a pleasant 58-year-old female patient who presented with small bowel obstruction. It is recurrent for patient. Patient was continued on n.p.o. and IV fluids with pain control medications. The abdominal x-ray did show consistencies with small bowel obstruction, a repeat xray was done and showed improvement. General surgery was consulted, they followed patient during hospitalization, patient's diet was advanced and supportive measures were continued. Patient did improve and was able to tolerate diet last evening and this morning on day of discharge. No emesis, nausea has been noted. Patient does admit to bowel movement this morning. Bowel sounds are active. General surgery has cleared patient for discharge. Patient will be advised to follow- up with PCP. Return to ED if symptoms worsen. Patient is stable at this time and ready for discharge. - Time Spent with Patient Total time spent providing and/or coordinating discharge services: Less than 30 minutes - Quality: VTE Deep Vein Thrombosis/Pulmonary Embolism Present on Admission: No Exam Vital signs: Vital Signs 02/14/18 11:39 02/14/18 15:41 02/14/18 20:00 Temperature 96.8 F L 97.2 F L 98.0 F Pulse Rate 72 75 80 Respiratory Rate 16 16 16 Blood Pressure 136/70 150/85 H 135/94 H Pulse Oximetry 98 97 97 02/15/18 00:00 Temperature 96.4 F L Pulse Rate 73 Respiratory Rate 16 Blood Pressure 135/84 Pulse Oximetry 98 Intake & Output 02/14/18 02/15/18 02/15/18 18:59 06:59 18:59 Intake Total 1000 / 1000 480 / 480 Balance 1000 / 1000 480 / 480 Weight 79.1 kg Intake: IV 1000 / 1000 NS Inj 1,000 ML @ 100 mls/hr IV 1000 / 1000 .CONT .Q10H JEIMY Rx#:[id number] Oral 480 / 480 Other: # Voids 4 2 Date of Last Bowel Movement 02/14/18 # Bowel Movements 1 Narrative: GENERAL: Well-developed, well-nourished patient in [facility]. SKIN: Warm and dry. No rash. HEAD: Normocephalic. Atraumatic. EYES: Pupils equal and round. No scleral icterus. No injection or drainage. ENT: No nasal bleeding or discharge. Mucous membranes pink and moist. NECK: Supple. Trachea midline. CARDIOVASCULAR: Regular rate and rhythm. S1, S2 noted. No murmur appreciated. RESPIRATORY: No accessory muscle use. Clear to auscultation. Breath sounds equal bilaterally. GASTROINTESTINAL: Abdomen soft, non-tender, nondistended. Normoactive bowel sounds x4. MUSCULOSKELETAL: No obvious deformities. Extremities without clubbing, cyanosis , or edema. NEUROLOGICAL: Awake and alert. No obvious cranial nerve deficits. Motor grossly within normal limits. 5/5 muscle strength in bilateral upper and lower extremities. Normal speech. PSYCHIATRIC: Appropriate mood and affect; insight and judgment normal. Results Procedures completed during hospitalization: See below. - Impressions ITS Impressions Abdomen/Pelvis CT 02/13/18 03:21 CONCLUSION: 1. Dilated proximal small bowel with fecalized loop in the pelvis and decompression of distal small bowel characteristic of a small bowel obstruction. 2. Small hiatal hernia. Small amount of free fluid. No free air. Abdomen X-Ray 02/14/18 06:00 CONCLUSION: Findings of mild small bowel ileus. Discharge Plan - Discharge Disposition Patient Disposition: 01 Discharge Home - Discharge Condition Condition: Stable - Discharge Order Discharge Orders: Discharge Order (Routine); Ordered 02/15/18 Ordered By: Mira Aldana [facility] Surgery Clear for Discharge (Routine); Ordered 02/14/18 Ordered By: Simon Hua - Discharge Details Anticipated Discharge Date: 02/15/18 - Physicians Team Primary Care Provider: Bryanna Infante Attending Provider: John Osborne Other Providers: Simon Hua MD
[2018-02-15] MEDS: Sod Chloride 0.9% Inj 1,000 ML IV.CONT SCH (09:49)
[2018-02-15] MEDS: Senna/Docusate Sodium 8.6/50 MG Tablet PO SCH (10:55)
== END 2018-02-15 10:40 | disposition home or self-care (01) ==
LOC: PHED 03:09 → PHEDA 04:32 → PH3 05:45
PROVIDERS: ADMIT Hospitalist; ATTEND Hospitalist